=== PATIENT | male | born 1985 | race Two or more races ===

== ENCOUNTER 2019-03-04 22:02 | Emergency (ER) | payer OTHER ==
[~2019-03-04] VITALS: Ht 177.8 cm; Wt 68.0 kg
[2019-03-04] MEDS ORDERED: LORazepam 2MG/ML-1ML VIAL ONE (22:13)
[2019-03-04] MEDS ORDERED: LEVETIRACETAM INJ 1,000 MG in D5W 5% 100 ML IV ONE (22:45)
[2019-03-04] MEDS ORDERED: VALPROATE INJ 500 MG in SODIUM CHL 0.9% 100 ML IV ONE (22:45)
[2019-03-04 23:05] LABS: Basophils # (auto) 0 uL; Basophils % (auto) 0.2 % (0.0-2.0); Eosinophils # (auto) 0.1 uL; Eosinophils % (auto) 1.5 % (0.0-7.0); Hematocrit 45.4 % (41.0-53.0); Hemoglobin 15.4 g/dL (13.5-17.5); Lymphocytes # (auto) 2.5 uL; Lymphocytes % (auto) 39.9 % (10.0-50.0); Mean Corpuscular Hemoglobin 32.9 pg (28.0-32.0); Mean Corpuscular Hgb Conc. 33.9 g/dL (32.0-36.0); Mean Corpuscular Volume 97.2 fL (80.0-100.0); Monocytes # (auto) 0.5 uL; Monocytes % (auto) 8.1 % (0.0-12.0); Neutrophils # (auto) 3.1 uL; Neutrophils % (auto) 50.3 % (37.0-80.0); Nucleated Red Blood Cells % 0.1 %; Platelet Count (auto) 190 10^3/uL (140-450); Red Blood Cells 4.68 10^6/uL (4.5-5.90); Red Cell Distribution Width 13.5 % (11.8-14.3); White Blood Cell 6.2 10^3/uL (4.4-10.8)
[2019-03-04 23:14] LABS: Albumin 3.3 g/dL (3.4-5.0); BUN/Creatinine Ratio 11.4; Calcium 8.3 mg/dL (8.5-10.1); Potassium 4.1 mmol/L (3.5-5.1)
[2019-03-04 23:16] LABS: Bilirubin, Total 0.2 mg/dL (0.2-1.0); Total Protein 6.8 g/dL (6.4-8.2)
[2019-03-04] MEDS ORDERED: LEVETIRACETAM 500 MG/5ML INJ IV ONE (23:26)
[2019-03-04] MEDS ORDERED: VALPROIC ACID 250 MG CAP PO ONE (23:46)
[2019-03-04 23:56] VITALS: BP 105/69
[2019-03-05 00:56] LABS: Hepatitis B Surface Antibody Positive
[2019-03-05 02:39] LABS: Hepatitis B Surface Antigen Negative (Negative)
[2019-03-13] MEDS ORDERED: LORazepam 2MG/ML-1ML VIAL IM ONE (11:45)
== END 2019-03-05 00:23 ==
LOC: EDBD 22:02 → ER 22:06 → EEVIPCON 22:06 → ER 03-05 00:23
DX: R56.9 Unspecified convulsions (principal)
CPT/HCPCS: 36415; 80053; 85025; 86703; 86706; 86803; 87340; 96365; 99283; J1953; J2060; J7060

== ENCOUNTER 2019-12-14 18:56 | Emergency (ER) | payer OTHER ==
[~2019-12-14] VITALS: Ht 175.3 cm; Wt 81.6 kg
[2019-12-14] MEDS ORDERED: LORazepam 2MG/ML-1ML VIAL IV ONE (19:45)
[2019-12-14] MEDS ORDERED: levETIRAcetam 500 MG TAB PO ONE (20:30)
[2019-12-14 20:32] LABS: Amphetamine Screen, Urine NEGATIVE (NEGATIVE); Barbiturate Scree,Urine NEGATIVE (NEGATIVE); Benzodiazephine Screen, Urine NEGATIVE (NEGATIVE); Cannabinoid Screen, Urine NEGATIVE (NEGATIVE); Cocaine Screen, Urine NEGATIVE (NEGATIVE); Opiate Scree,Urine NEGATIVE (NEGATIVE); Phencyclidine Screen, Urine NEGATIVE (NEGATIVE)
[2019-12-14 21:00] VITALS: BP 106/72
[2019-12-14 21:13] LABS: Basophils # (auto) 0 10 ^3/uL (0-0.2); Basophils % (auto) 0.3 % (0.0-2.0); Eosinophils # (auto) 0.1 10 ^3/uL (0-0.8); Eosinophils % (auto) 1.2 % (0.0-7.0); Hematocrit 43.9 % (41.0-53.0); Hemoglobin 15.3 g/dL (13.5-17.5); Lymphocytes # (auto) 2.3 10 ^3/uL (0.4-5.4); Lymphocytes % (auto) 28.7 % (10.0-50.0); Mean Corpuscular Hemoglobin 33.1 pg (28.0-32.0); Mean Corpuscular Volume 94.6 fL (80.0-100.0); Monocytes # (auto) 0.5 10 ^3/uL (0-1.3); Monocytes % (auto) 6.5 % (0.0-12.0); Neutrophils # (auto) 5.1 10 ^3/uL (1.6-8.6); Neutrophils % (auto) 63.3 % (37.0-80.0); Nucleated Red Blood Cells % 0.1 %; Platelet Count (auto) 227 10^3/uL (140-450); Red Blood Cells 4.64 10^6/uL (4.5-5.90); Red Cell Distribution Width 13.6 % (11.8-14.3)
[2019-12-14 21:30] LABS: Albumin 3.6 g/dL (3.4-5.0); BUN/Creatinine Ratio 9.4; Calcium 8.4 mg/dL (8.5-10.1); Potassium 3.9 mmol/L (3.5-5.1)
[2019-12-14 21:33] LABS: Bilirubin, Total 0.5 mg/dL (0.2-1.0)
== END 2019-12-14 21:59 | disposition home or self-care (01) ==
LOC: EDUNIT# 18:56 → EDBD 18:56 → EEVIPCON 18:57 → ER 18:57
DX: G40.909 Epilepsy, unspecified, not intractable, without status epilepticus (principal); F41.1 Generalized anxiety disorder
CPT/HCPCS: 36415; 70450; 80053; 80307; 85025

== ENCOUNTER → 2019-12-15 | Emergency (ER) | payer OTHER ==
[~2019-12-15] VITALS: Ht 167.6 cm; Wt 61.2 kg
[~2019-12-15] MED LIST: diphenhdrAMINE HCL 50 MG/1 ML VL IV ONE
[2019-12-15 17:02] LABS: Urine Bacteria NONE SEEN /hpf (None Seen); Urine Blood Negative /uL (Negative); Urine Specific Gravity 1.005 (1.001-1.035); Urine WBC 1 /hpf (0 - 3)
[2019-12-15 17:10] LABS: Basophils # (auto) 0 10 ^3/uL (0-0.2); Basophils % (auto) 0.3 % (0.0-2.0); Eosinophils # (auto) 0.1 10 ^3/uL (0-0.8); Eosinophils % (auto) 1.6 % (0.0-7.0); Hemoglobin 15.1 g/dL (13.5-17.5); Lymphocytes # (auto) 2.1 10 ^3/uL (0.4-5.4); Lymphocytes % (auto) 26.2 % (10.0-50.0); Mean Corpuscular Hemoglobin 32.3 pg (28.0-32.0); Mean Corpuscular Hgb Conc. 33.7 g/dL (32.0-36.0); Mean Corpuscular Volume 95.8 fL (80.0-100.0); Monocytes # (auto) 0.5 10 ^3/uL (0-1.3); Monocytes % (auto) 6.2 % (0.0-12.0); Neutrophils # (auto) 5.2 10 ^3/uL (1.6-8.6); Neutrophils % (auto) 65.7 % (37.0-80.0); Platelet Count (auto) 227 10^3/uL (140-450); Red Blood Cells 4.69 10^6/uL (4.5-5.90)
[2019-12-15 17:22] LABS: INR 1.09 (0.9-1.15); Partial Thromboplastin Time 31.1 sec (23.64-32.05)
[2019-12-15 17:25] LABS: Albumin 3.5 g/dL (3.4-5.0); Anion Gap 8 (5-15); Blood Urea Nitrogen 8 mg/dL (7-18); Calcium 8.2 mg/dL (8.5-10.1); Carbon Dioxide 24 mmol/L (21-32); Chloride 113 mmol/L (98-107); Glucose 85 mg/dL (74-106); Magnesium 2.1 mg/dL (1.6-2.6); Potassium 3.7 mmol/L (3.5-5.1); Sodium 145 mmol/L (136-145)
[2019-12-15 17:31] LABS: Alanine Aminotransferase 18 U/L (16-61); Alkaline Phosphatase 82 U/L (45-117); Aspartate Aminotransferase 19 U/L (15-37); BUN/Creatinine Ratio 8.5; Bilirubin, Total 0.5 mg/dL (0.2-1.0); GFR African American 119 mL/min; GFR Non-African American 98 mL/min; Total Protein 7.2 g/dL (6.4-8.2)
[2019-12-15 17:56] LABS: Alcohol, Urine < 3.0 mg/dL (0-5); Amphetamine Screen, Urine NEGATIVE (NEGATIVE); Barbiturate Scree,Urine NEGATIVE (NEGATIVE); Benzodiazephine Screen, Urine POSITIVE (NEGATIVE); Cannabinoid Screen, Urine NEGATIVE (NEGATIVE); Cocaine Screen, Urine NEGATIVE (NEGATIVE); Opiate Scree,Urine NEGATIVE (NEGATIVE); Phencyclidine Screen, Urine NEGATIVE (NEGATIVE)
[2019-12-15 20:00] VITALS: BP 121/61
== END | disposition home or self-care (01) ==
LOC: EDUNIT# 15:55 → ER 16:01 → EDBD 16:01 → EEVIPCON 16:01
DX: G40.409 Other generalized epilepsy and epileptic syndromes, not intractable, without status epilepticus (principal); Z91.14 Patient's other noncompliance with medication regimen
CPT/HCPCS: 36415; 71045; 80053; 80307; 81001; 82542; 83735; 83880; 84443; 84484; 85025; 85379; 85610; 85730; 87081; 96365; 96375; 99284; J1200; J1953; J7060

== ENCOUNTER 2019-12-16 00:06 | Inpatient (IN) | payer OTHER ==
[~2019-12-16] VITALS: Ht 167.6 cm; Wt 76.7 kg
[2019-12-16] MEDS ORDERED: LORazepam 2MG/ML-1ML VIAL IV PRN ×2 (01:00→21:00)
--- NOTE | 2019-12-16 03:00 | NUR ---
Admitted this 34 y/o male client from long term, [facility], [facility] and mouth pain s/p Seizure. Pt. alert, awake, oriented x 4, in Room Air, breathing regular and unlabored, lungs are clear bilaterally, presence of pain @ the nasal areas, upper lip, mouth and tooth # 23 pain about 2 /10 scale, pain is tolerable. Pt. arrived to from ER. to [facility] Room # 207 by karen accompanied by 2 hospital personnel. Pt. placed to the bed comfortably. Given orientation to the room and unit including hospital policies "no smoking policy", safety rules, routines such as V/S taking and hospital policies. Pt. given orientation about the use of call-light, TV, telephone and bed controls. Assessment done from head to toe. Pt. skin is generally intact. Ambulatory to the BR and independent with ADL's and can turn self. Officers @ the bedside x 2 present and guarding the pt. Pt. PIV access @ the LAC G # 20 , patent and intact. No s/s of IV infiltration. Pt. is resting and kept. safe and engineering teacher bed. Pt. with hand cuff and ankle cuffs on. Medical-Surgical Pt.
[2019-12-16 03:16] VITALS: BP 122/78
--- NOTE | 2019-12-16 03:26 | NUR ---
MED REC UNABLE TO OBTAIN CORRECT DOSAGES OF MEDICATIONS. PATIENT STATES HE TAKES, GABAPENTIN, KEPPRA AND TRAZODONE. PATIENT UNABLE TO STATE DOSES OR FREQUENCY.
--- NOTE | 2019-12-16 03:30 | NUR ---
Resource RN and assigned RN gathered data from the pt. Pt. provided assistance @ the bedside. Pt. on Regular diet.
[2019-12-16 05:44] VITALS: BP 102/56
--- NOTE | 2019-12-16 06:00 | NUR ---
Pt. is resting and sleeping. Maintain a quiet and safe environment. Officers @ the bedside.
--- NOTE | 2019-12-16 07:30 | NUR ---
PER NOC SHIFT MONI CARROLL, MRSA SWAB SENT TO LABORATORY
--- NOTE | 2019-12-16 07:30 | NUR ---
Gave report to the next Day Shift assigned RN.
[2019-12-16 09:00] VITALS: BP 124/70
[2019-12-16] MEDS: GABAPENTIN 400 MG CAP PO SCH ×2 (10:14→21:37)
--- NOTE | 2019-12-16 10:30 | NUR ---
DR INMAN AT BED SIDE DISCUSSING POC WITH PATIENT. PATIENT VERBALIZES UNDERSTANDING.
--- NOTE | 2019-12-16 11:00 | NUR ---
PER MARY, PATIENT RIPPED OFF IV, SITE ASSESSED, CATHETER INTACT, NO TRAUMA TO SITE. IV EDUCATION GIVEN TO PATIENT. PATIENT STATES "I TOOK IT OFF BECAUSE I NEEDED TO PRAY". PATIENT AWARE OF NEED OF NEW IV, STATES HE WILL NOT PULL IT OFF AGAIN.
--- NOTE | 2019-12-16 11:10 | NUR ---
PATIENT IN SHOWER. GUARDS AT DOORWAY.
--- NOTE | 2019-12-16 12:00 | NUR ---
IV insertion IV access obtained, via clean sterile technique by inserting 22 gauge catheter at left forearm after 1 attempt. IV secured properly. No trauma to site. Patient tolerated well.
[2019-12-16 13:00] VITALS: BP 123/74
[2019-12-16 17:44] VITALS: BP 120/75
--- NOTE | 2019-12-16 19:30 | NUR ---
Opening Shift Note Assumed care of patient, awake and alert. Fall, safety, and seizure precautions in place. No S/S of distress/SOB or pain. Call light within reach and able to use. Guards at bedside. Instructed on POC and to call for assist PRN, patient verbalized understanding and in agreement. Will continue to monitor for changes Q1hr and PRN.
[2019-12-16] MEDS: levETIRAcetam 500 MG TAB PO SCH (21:37)
[2019-12-16] MEDS: traZODone HCL 50 MG TAB PO SCH (21:37)
[2019-12-16 22:00] VITALS: BP 101/47
--- NOTE | 2019-12-17 05:02 | NUR ---
Pain Patient reports pain 6/10 using adult pain scale to head. No medications prn for pain available. MD aware of pain and no prn pain medications available. Patient appears comfortable and in no acute distress. Will continue to monitor.
[2019-12-17 09:10] VITALS: BP 114/62
[2019-12-17] MEDS: GABAPENTIN 400 MG CAP PO SCH ×2 (09:28→21:41)
[2019-12-17] MEDS: levETIRAcetam 500 MG TAB PO SCH ×2 (09:28→21:41)
[2019-12-17] MEDS: ENOXAPARIN SOD 40 MG/0.4 ML SYRINGE SC SCH (09:29)
[2019-12-17 13:00] VITALS: BP 112/77
--- NOTE | 2019-12-17 13:16 | NUR ---
GUARDS WITNESSED PATIENT HAVING A SEIZURE, WHICH LASTED ABOUT A MINUTE PER GUARDS. PRN ATIVAN ADMINISTERED PER MD ORDERS. PATIENT ASSESSED. PATIENT LETHARGIC AND C/O HEADACHE. GUARDS STATE HE HIT HIS HEAD ON THE RAIL. NEW BRUISING NOTED AROUND EYES. WILL PAGE DR INMAN.
--- NOTE | 2019-12-17 13:27 | NUR ---
DR INMAN PAGED D/T PATIENT CONDITION S/P SEIZURE. BRUISING NOTED AROUND BOTH EYES. AWAITING CALL BACK.
--- NOTE | 2019-12-17 13:54 | NUR ---
PATIENT C/O CHEST PAIN AND SEVERE ABDOMINAL PAIN. WILL DO EKG. AWAITING CALL BACK FROM .
--- NOTE | 2019-12-17 14:05 | NUR ---
EKG READING SINUS RHYTHM
--- NOTE | 2019-12-17 14:49 | NUR ---
SECOND PAGE THROUGH EXCHANGE TO DR INMAN. PER EDUCATION COORDINATOR MESSAGE HAS BEEN SENT TO . AWAITING CALL BACK. PATIENT CONTINUES TO C/O HEADACHE. WILL CONTINUE TO MONITOR.
--- NOTE | 2019-12-17 14:56 | NUR ---
RECEIVED CALL FROM MD INMAN. UPDATED ON PATIENTS STATUS. NO NEW ORDERS RECEIVED. WILL CONTINUE TO MONITOR.
--- NOTE | 2019-12-17 15:00 | NUR ---
PATIENT VOMITING STATES 06/08 ABDOMINAL PRESSURE AND FRONTAL HEAD PRESSURE. WILL RELATE TO MD UPON ARRIVAL. Addendum: 12/17/19 at 1606 by EUGENIO SANFORD RN RN *ABDOMINAL PAIN NOT PRESSURE
--- NOTE | 2019-12-17 15:30 | NUR ---
MD INMAN IN UNIT. NEW ORDERS RECEIVED. REFER TO ORDER HX.
[2019-12-17] MEDS ORDERED: ONDANSETRON HCL 4 MG/2 ML VIAL IV PRN (15:45)
[2019-12-17 17:00] VITALS: BP 111/82
--- NOTE | 2019-12-17 17:07 | NUR ---
ROUNDS PATIENT LAYING IN BED COMFORTABLY, PATIENT STATES," I FEEL MUCH BETTER." WILL CONTINUE TO MONITOR.
--- NOTE | 2019-12-17 19:30 | NUR ---
Opening Shift Note Assumed care of patient, awake and alert. No S/S of distress/SOB or pain. Fall, safety, and seizure precautions in place. Call light within reach and able to use. Guards at bedside. Instructed on POC and to call for assist PRN, patient verbalized understanding and in agreement. Will continue to monitor for changes Q1hr and PRN.
[2019-12-17] MEDS: traZODone HCL 50 MG TAB PO SCH (21:18)
--- NOTE | 2019-12-17 21:25 | NUR ---
CALLED AFTER HOURS PHARMACY CALLED AFTER-HOURS PHARMACY TO CORRECT MEDICATION (SEE EMAR). PHARMACIST VERBALIZED UNDERSTANDING AND IN AGREEMENT. WILL CONTINUE TO MONITOR.
[2019-12-17] MEDS: GABAPENTIN 100 MG CAP PO SCH (21:41)
[2019-12-17 22:19] VITALS: BP 119/72
[2019-12-18 05:00] VITALS: BP 104/61
[2019-12-18 05:42] LABS: Calcium 8.7 mg/dL (8.5-10.1); Potassium 3.6 mmol/L (3.5-5.1)
[2019-12-18 05:45] LABS: BUN/Creatinine Ratio 10.2
--- NOTE | 2019-12-18 08:00 | NUR ---
Opening Shift Note Assumed care of patient, awake and alert laying in bed. No S/S of distress/SOB or pain. Instructed on POC and to call for assist PRN, will continue to monitor for changes Q1hr and PRN. Guards at bedside.
[2019-12-18 08:29] VITALS: BP 96/56
[2019-12-18] MEDS: GABAPENTIN 100 MG CAP PO SCH ×2 (09:14→21:16)
[2019-12-18] MEDS: levETIRAcetam 500 MG TAB PO SCH ×2 (09:14→21:16)
[2019-12-18] MEDS: PANTOPRAZOLE 40 MG TAB PO SCH (09:14)
[2019-12-18] MEDS: ENOXAPARIN SOD 40 MG/0.4 ML SYRINGE SC SCH (09:15)
[2019-12-18] MEDS: GABAPENTIN 400 MG CAP PO SCH ×2 (09:15→21:16)
[2019-12-18 12:30] VITALS: BP 123/69
[2019-12-18 16:59] VITALS: BP 107/69
--- NOTE | 2019-12-18 19:25 | NUR ---
Opening Shift Note Upon entering room, patient is in no S/S of distress/SOB or pain. AOx4. Guards at bedside. Fall, safety, and seizure precautions in place. Call light within reach and able to use. Instructed patient on his POC and to call for assist PRN, patient verbalized understanding and in agreement. Will continue to monitor for changes Q1hr and PRN.
[2019-12-18] MEDS: traZODone HCL 50 MG TAB PO SCH (21:17)
[2019-12-18 21:52] VITALS: BP 113/69
[2019-12-19 05:00] VITALS: BP 125/60
--- NOTE | 2019-12-19 08:10 | NUR ---
Opening Shift Note Assumed care of patient, awake and alert sitting up in bed. No S/S of distress/SOB or pain. Patient stated that he is having a mild headache 2/10 and blurred vision on and off since he woke up this AM. Will notify neurologist. Instructed on POC and to call for assist PRN, will continue to monitor for changes Q1hr and PRN.
[2019-12-19 09:21] VITALS: BP 102/59
[2019-12-19] MEDS: ENOXAPARIN SOD 40 MG/0.4 ML SYRINGE SC SCH (09:24)
[2019-12-19] MEDS: PANTOPRAZOLE 40 MG TAB PO SCH (09:24)
[2019-12-19] MEDS: GABAPENTIN 400 MG CAP PO SCH ×2 (09:25→22:48)
[2019-12-19] MEDS: levETIRAcetam 500 MG TAB PO SCH ×2 (09:25→22:48)
[2019-12-19] MEDS: GABAPENTIN 100 MG CAP PO SCH ×2 (09:25→22:48)
[2019-12-19 14:20] VITALS: BP 117/58
[2019-12-19 16:30] VITALS: BP 132/72
--- NOTE | 2019-12-19 19:15 | NUR ---
Opening Shift Note Assumed care of patient, awake and alert. No S/S of distress/SOB or pain. Guards are present in the patient's room. Seizure precautions are in place. Bed is locked in lowest position with call light within reach. Instructed on POC and to call for assist PRN, will continue to monitor for changes Q1hr and PRN.
[2019-12-19 21:00] VITALS: BP 118/79
[2019-12-19] MEDS: traZODone HCL 50 MG TAB PO SCH (22:00)
[2019-12-20 04:30] VITALS: BP 107/53
--- NOTE | 2019-12-20 08:00 | NUR ---
ASSESSMENT NOTE PT IS ALERT ORIENTED X4, RESTING IN BED COMFORTABLY, NO DISTRESS NOTED, NO ACTIVE SEIZURE NOTED, PT HAS A METAL HAND CUFF AT RT WRIEST, ABLE TO VERBALIS HIS NEEDS, SELF REPOSITION, CALL LIGHT WITHIN REACH
[2019-12-20 09:00] VITALS: BP 125/69
[2019-12-20] MEDS: ENOXAPARIN SOD 40 MG/0.4 ML SYRINGE SC SCH (09:02)
[2019-12-20] MEDS: GABAPENTIN 400 MG CAP PO SCH (09:03)
[2019-12-20] MEDS: GABAPENTIN 100 MG CAP PO SCH (09:03)
[2019-12-20] MEDS: levETIRAcetam 500 MG TAB PO SCH (09:03)
[2019-12-20] MEDS: PANTOPRAZOLE 40 MG TAB PO SCH (09:04)
--- NOTE | 2019-12-20 11:30 | NUR ---
DR GALEANA IS HERE FOLLOWING UP ON PT WITH DISCHARGE ORDERS
[2019-12-20] MEDS ORDERED: LEVE100012 PO (11:44)
--- NOTE | 2019-12-20 13:00 | NUR ---
ALL DISCHARGE INSTRUCTION GIVEN TO PT, VERBALIS UNDERSTANDING, STRESS ON TAKING KEPPRA PRESCRIBED, NEXT DOSE IS TONIGHT AND FOLLOW UP WITH SHELTER MD,CHART COPY AND EXIT CARE ARE GIVEN TO PT/ GUARDS
--- NOTE | 2019-12-20 13:10 | NUR ---
IV removal IV DC'd with sterile technique, catheter fully intact. Pressure dressing applied to site. Patient tolerated procedure well. Discharged with aftercare instructions per MD. NOTE:
--- NOTE | 2019-12-20 13:43 | NUR ---
PT AMBULATED OUT WITH HIS GUARDS, HAS HAND CUFF ON, NO DISTRESS NOTED, ALERT ORIENTED X4, TO THE [facility] VEHICLE
== END 2019-12-20 13:43 | DRG 101 ==
LOC: EDBD 00:06 → EEVIPCON 00:06 → ER 00:06 → EDUNIT# 00:06 → OVERFLOW 00:07 → CENTRAL 02:54
PROVIDERS: ADMIT Internal Medicine; ATTEND Internal Medicine
DX: G40.909 Epilepsy, unspecified, not intractable, without status epilepticus (principal); T50.996A Underdosing of other drugs, medicaments and biological substances, initial encounter; F31.9 Bipolar disorder, unspecified; F41.9 Anxiety disorder, unspecified; Z91.138 Patient's unintentional underdosing of medication regimen for other reason; Y92.89 Other specified places as the place of occurrence of the external cause
CPT/HCPCS: 36415; 70450; 70486; 70540; 70551; 80048; 82542; 87081; G0378; J2405

== ENCOUNTER 2020-01-31 13:16 | Inpatient (IN) | payer OTHER ==
[~2020-01-31] VITALS: Ht 149.9 cm; Wt 82.0 kg
[~2020-01-31 13:16] MED LIST changes: +LEVE100012 PO; -diphenhdrAMINE HCL 50 MG/1 ML VL IV ONE
[2020-01-31] MEDS ORDERED: SODIUM CHLORIDE 0.9% 1,000 ML IVB ONE (14:07)
[2020-01-31 14:46] LABS: Basophils # (auto) 0 10 ^3/uL (0-0.2); Basophils % (auto) 0.3 % (0.0-2.0); Eosinophils # (auto) 0.1 10 ^3/uL (0-0.8); Eosinophils % (auto) 1.4 % (0.0-7.0); Hematocrit 43.2 % (41.0-53.0); Hemoglobin 14.5 g/dL (13.5-17.5); Lymphocytes # (auto) 1.9 10 ^3/uL (0.4-5.4); Lymphocytes % (auto) 25.6 % (10.0-50.0); Mean Corpuscular Hemoglobin 31.9 pg (28.0-32.0); Mean Corpuscular Hgb Conc. 33.6 g/dL (32.0-36.0); Mean Corpuscular Volume 94.8 fL (80.0-100.0); Monocytes # (auto) 0.5 10 ^3/uL (0-1.3); Monocytes % (auto) 6.1 % (0.0-12.0); Neutrophils % (auto) 66.6 % (37.0-80.0); Nucleated Red Blood Cells % 0.1 %; Platelet Count (auto) 249 10^3/uL (140-450); Red Blood Cells 4.55 10^6/uL (4.5-5.90); Red Cell Distribution Width 13.5 % (11.8-14.3); White Blood Cell 7.5 10^3/uL (4.4-10.8)
--- NOTE | 2020-01-31 14:48 | NUR ---
MS admit from [facility] admitted to tele/MS after SBAR received. Patient oriented to Autumn Crandall, primary RN, unit, room, bed, and unit policies regarding patient care and visiting hours. Bed set to lowest position/locked, bedside rails up x2, call light within reach. Instructed patient to call for assistance. Patient verbalized understanding. Will continue to monitor Q1hr and PRN. Addendum: 01/31/20 at 1837 by Autumn Crandall RN CORRECT TIME [id number]
[2020-01-31 15:05] LABS: Potassium 3.6 mmol/L (3.5-5.1)
[2020-01-31 15:11] LABS: Albumin 3.3 g/dL (3.4-5.0); BUN/Creatinine Ratio 9.6; Bilirubin, Total 0.4 mg/dL (0.2-1.0); Calcium 7.9 mg/dL (8.5-10.1); Magnesium 2.4 mg/dL (1.6-2.6); Total Protein 6.7 g/dL (6.4-8.2)
[2020-01-31] MEDS ORDERED: LEVE750T15 PO (17:35)
[2020-01-31] MEDS ORDERED: GABA-339 PO ×2 (17:35→21:24)
[2020-01-31] MEDS ORDERED: OLAN5TAB26 PO (17:35)
[2020-01-31] MEDS ORDERED: TRAZ1TAB12 PO (17:35)
--- NOTE | 2020-01-31 19:35 | NUR ---
Opening Shift Note Assumed care of patient, awake and alert oriented x4. No S/S of distress/SOB noted. Bed is low, locked with 2x side rails up. Call light is within reach. Guards at the bedside and bed rails are padded bilaterally. Instructed on POC and to call for assist PRN.
--- NOTE | 2020-01-31 21:22 | NUR ---
Paged Dr. Carreon: Paged Dr. Carreon at this time regarding patients medication. Patient requesting to take their scheduled gabapentin on their medication reconciliation. Waiting for call back from .
--- NOTE | 2020-01-31 21:25 | NUR ---
Dr Carreon called back: Dr. Carreon called back. Updated MD regarding patient wanting to take his 1200mg gabapentin BID that he takes according to his medication reconciliation. Dr. Carreon approved of medication to be placed. To place orders..
[2020-01-31] MEDS: GABAPENTIN 400 MG CAP PO SCH (21:56)
[2020-01-31] MEDS: levETIRAcetam 500 MG TAB PO SCH (21:57)
[2020-01-31 22:00] VITALS: BP 113/67
[2020-02-01 05:00] VITALS: BP 121/70
[2020-02-01 08:23] LABS: Alcohol, Urine < 3.0 mg/dL (0-10); Amphetamine Screen, Urine NEGATIVE (NEGATIVE); Barbiturate Scree,Urine NEGATIVE (NEGATIVE); Benzodiazephine Screen, Urine POSITIVE (NEGATIVE); Cannabinoid Screen, Urine NEGATIVE (NEGATIVE); Cocaine Screen, Urine NEGATIVE (NEGATIVE); Opiate Scree,Urine NEGATIVE (NEGATIVE); Phencyclidine Screen, Urine NEGATIVE (NEGATIVE)
[2020-02-01] MEDS: LORazepam 2MG/ML-1ML VIAL IV PRN ×2 (08:45→20:52)
--- NOTE | 2020-02-01 08:45 | NUR ---
Patient having seizure in the bathroom fell on the floor, Ativan 2 mg IV given VS T 98.0 HR 80 BP 117/75 Sat oxygen 98 % room air. Patient does not remember how he had seizure. Patient awake, alert , oriented x 4 and verbally responsive. Speech is clear and coherent. Hand grasps strong bilaterally. He did not know if he hit his head. He stated his pain is on his back , pain level 10/10. No skin tear, abrasion , no any bleeding noted. Patient walked back to the bed without difficulty and assisted by a guard. Dr. Saldivar at bedside, made aware. CN notified. Will continue to monitor.
[2020-02-01 09:00] VITALS: BP 107/63
[2020-02-01] MEDS: levETIRAcetam 500 MG TAB PO SCH ×2 (10:14→21:44)
[2020-02-01] MEDS: GABAPENTIN 400 MG CAP PO SCH ×2 (10:14→21:43)
[2020-02-01] MEDS: HYDROcodone-ACET 10/325MG TAB PO PRN ×2 (10:15→14:15)
[2020-02-01 13:00] VITALS: BP 128/84
--- NOTE | 2020-02-01 14:16 | NUR ---
Spoke to Dr. Fernandez regarding patient refused MRI, increase pain meds and need Tele MD lazara aware , no new orders at this time.
[2020-02-01 17:00] VITALS: BP 124/70
--- NOTE | 2020-02-01 19:30 | NUR ---
RECEIVED PATENT FORM DAY SHIFT RN. PATIENT RESTING IN BED. NO S/S OF DISTRESS NOTED. C/O BACK PAIN @ 12/07. HOT PACKS APPLIED. POC INSTRUCTED AND ENCOURAGED PATIENT TO CALL FOR SOUND RECORDING TECHNICIAN IF NEEDED. BED IN LOWEST POSITION WITH PADDED RAILS UP X 2. CALL PARTIDA WITHIN REACH. ALARM ON. GUARDS AT BEDSIDE. CONTINUE TO MONITOR FOR CHANGES Q1H AND PRN.
--- NOTE | 2020-02-01 21:00 | NUR ---
PATIENT JUST HAD SEIZURE FOR 20 SECONDS PER GUARDS. WHEN WENT TO PATIENT'S ROOM, PATIENT ALREADY STOPPED SEIZURES. REORIENTED PATIENT TO TIME AND PLACE, PATIENT INCONTINENT OF URINE. AND VOMITED STOMACH CONTENT. VITALS, TEMP 98..3, BP 138/78, HR 74, RR 18, O2 SAT 94% ON RA. MEDICATED PATIENT FOR SEIZURES. TOTAL BED LINEN CHANGED. PATIENT'S TAKING SHOWER NOW UNDER GUARDS' SUPERVISION. PATIENT TOLERATED WELL. CONTINUE TO MONITOR.
[2020-02-01 22:00] VITALS: BP 138/78
--- NOTE | 2020-02-02 00:09 | NUR ---
PATIENT SLEEPING. NO S/S OF DISTRESS AND PAIN NOTED. CONTINUE TO MONITOR.
--- NOTE | 2020-02-02 03:40 | NUR ---
PATIENT SLEEPING. NO S/S OF DISTRESS AND PAIN NOTED. CONTINUE TO MONITOR.
[2020-02-02 05:12] VITALS: BP 104/57
[2020-02-02 09:00] VITALS: BP 116/72
[2020-02-02] MEDS: HYDROcodone-ACET 10/325MG TAB PO PRN ×2 (09:16→14:07)
[2020-02-02] MEDS: levETIRAcetam 500 MG TAB PO SCH ×2 (09:16→22:25)
[2020-02-02] MEDS: GABAPENTIN 400 MG CAP PO SCH (09:16)
[2020-02-02 13:00] VITALS: BP 111/71
[2020-02-02 17:00] VITALS: BP 126/79
[2020-02-02] MEDS: buPROPion HCL 75 MG TAB PO SCH (18:49)
--- NOTE | 2020-02-02 19:55 | NUR ---
RECEIVED PATENT FORM DAY SHIFT RN. PATIENT RESTING IN BED. NO S/S OF DISTRESS NOTED. DENIED PAIN FOR NOW. BED IN LOWEST POSITION WITH PADDED RAILS UP X 2. CALL PARTIDA WITHIN REACH. ALARM ON. GUARDS AT BEDSIDE. CONTINUE TO MONITOR FOR CHANGES Q1H AND PRN.
--- NOTE | 2020-02-02 20:30 | NUR ---
IV insertion IV access obtained, via clean sterile technique by inserting [22] gauge catheter at [RW] after [1] attempt(s). IV secured properly. No trauma to site. Patient tolerated well. IV SITE RED AND PAIN WHEN FLUSHING WITH NS. IV removal IV DC'd with clean sterile technique, catheter fully intact. Pressure dressing applied to site. Patient tolerated well. NOTE:
[2020-02-02 22:00] VITALS: BP 108/66
[2020-02-02] MEDS: OLANZapine 5 MG TAB PO SCH (22:24)
[2020-02-02] MEDS: GABAPENTIN 300 MG CAP PO SCH (22:24)
--- NOTE | 2020-02-03 01:28 | NUR ---
PATIENT SLEEPING. NO S/S OF DISTRESS NOTED. CONTINUE TO MONITOR.
[2020-02-03 05:00] VITALS: BP 91/56
[2020-02-03] MEDS: buPROPion HCL 75 MG TAB PO SCH ×2 (06:12→18:27)
--- NOTE | 2020-02-03 06:12 | NUR ---
REASSESSED BP 102/56, HR 45. SCHEDULED MEDICATION GIVEN ORDERED. CONTINUE TO MONITOR.
[2020-02-03 06:13] VITALS: BP 102/56
[2020-02-03 09:00] VITALS: BP 101/60
[2020-02-03] MEDS: GABAPENTIN 300 MG CAP PO SCH ×2 (10:13→22:31)
[2020-02-03] MEDS: levETIRAcetam 500 MG TAB PO SCH ×2 (10:13→22:31)
[2020-02-03 13:00] VITALS: BP 99/62
[2020-02-03 16:56] VITALS: BP 114/72
--- NOTE | 2020-02-03 19:10 | NUR ---
Opening Shift Note Assumed care of patient, awake and alert. No S/S of distress/SOB or pain. Safety measures in place bed in lowest position, side rails up x2, and call light within reach. Instructed on POC and to call for assist PRN, will continue to monitor for changes Q1hr and PRN.
[2020-02-03 21:28] VITALS: BP 98/73
[2020-02-03] MEDS: OLANZapine 5 MG TAB PO SCH (22:31)
[2020-02-04 05:24] VITALS: BP 92/53
[2020-02-04] MEDS: buPROPion HCL 75 MG TAB PO SCH ×2 (06:36→18:13)
[2020-02-04 09:00] VITALS: BP 102/45
--- NOTE | 2020-02-04 09:26 | NUR ---
Dr. Carreon at bedside to discuss plan of care with patient.
[2020-02-04] MEDS: levETIRAcetam 500 MG TAB PO SCH ×2 (11:00→21:36)
[2020-02-04] MEDS: GABAPENTIN 300 MG CAP PO SCH ×2 (11:00→21:37)
[2020-02-04 13:00] VITALS: BP 102/54
--- NOTE | 2020-02-04 13:45 | NUR ---
Est energy needs 6355-1107 kcal (20-23 kcal/kg BW 81.8kg) Est protein needs 66-82g (0.8-1g/kg BW 81.8kg) Will reassess prn. Addendum: 02/04/20 at [address] Amended: Links added.
[2020-02-04 17:00] VITALS: BP 137/81
--- NOTE | 2020-02-04 19:00 | NUR ---
Opening Shift Note Assumed care of patient, awake and alert. No S/S of distress/SOB or pain. Safety measures in place bed in lowest position, side rails up x2, and call light within reach. Instructed on POC and to call for assist PRN, will continue to monitor for changes Q1hr and PRN. Patient is an inmate; two guards at bedside.
--- NOTE | 2020-02-04 20:04 | NUR ---
PATIENT WALKING AROUND NURSES STATION WITH TWO GUARDS. STEADY GAIT NOTED. PATIENT DENIES PAIN.
[2020-02-04] MEDS: OLANZapine 5 MG TAB PO SCH (21:39)
[2020-02-04 22:00] VITALS: BP 103/63
[2020-02-05 05:50] VITALS: BP 92/49
[2020-02-05] MEDS: buPROPion HCL 75 MG TAB PO SCH (06:18)
--- NOTE | 2020-02-05 07:30 | NUR ---
Opening Shift Note Assumed care of patient, awake and alert. Respirations are even and unlabored. No S/S of distress/SOB or pain. Guards at bedside. Bed is low, locked with side rails up. Call light is within reach. Instructed on POC and to call for assist PRN, will continue to monitor for changes Q1hr and PRN.
[2020-02-05 09:00] VITALS: BP 94/75
[2020-02-05] MEDS: GABAPENTIN 300 MG CAP PO SCH (11:06)
[2020-02-05] MEDS: levETIRAcetam 500 MG TAB PO SCH (11:06)
[2020-02-05] MEDS ORDERED: KEP500T PO (12:30)
[2020-02-05] MEDS ORDERED: GABA300C10 PO (12:30)
[2020-02-05] MEDS ORDERED: BUP75T PO (12:30)
[2020-02-05] MEDS ORDERED: OLAN1TAB7 PO (12:30)
[2020-02-05 13:00] VITALS: BP_SYST 104; BP_SYST 118; BP_DIAS 61; BP_DIAS 71
[2020-02-05 14:20] VITALS: BP 104/61
--- NOTE | 2020-02-05 15:10 | NUR ---
DISCHARGE Discharge paperwork given to guards at bedside. IV removed with 22g catheter fully intact. No distress noted.
== END 2020-02-05 16:02 | DRG 101 ==
LOC: EEVIPCON 13:16 → EDBD 13:16 → ER 13:16 → OVERFLOW 13:17 → CENTRAL 16:48
PROVIDERS: ADMIT Internal Medicine; ATTEND Internal Medicine
DX: G40.89 Other seizures (principal); F17.200 Nicotine dependence, unspecified, uncomplicated; F20.9 Schizophrenia, unspecified; F32.9 Major depressive disorder, single episode, unspecified; F41.9 Anxiety disorder, unspecified; G62.9 Polyneuropathy, unspecified; Z79.899 Other long term (current) drug therapy
CPT/HCPCS: 36415; 70450; 71045; 80053; 80307; 82542; 83735; 85025; 96360; G0378

== ENCOUNTER 2020-03-17 17:16 | Emergency (ER) | payer OTHER ==
[~2020-03-17] VITALS: Ht 170.2 cm; Wt 65.8 kg
[~2020-03-17 17:16] MED LIST changes: +BUP75T PO; +GABA-339 PO; +GABA300C10 PO; +KEP500T PO; -LEVE100012 PO; +LEVE750T15 PO; +OLAN1TAB7 PO; +TRAZ1TAB12 PO
[2020-03-17 18:15] LABS: Basophils # (auto) 0 10 ^3/uL (0-0.2); Basophils % (auto) 0.5 % (0.0-2.0); Eosinophils # (auto) 0.2 10 ^3/uL (0-0.8); Eosinophils % (auto) 3.2 % (0.0-7.0); Hematocrit 47.3 % (41.0-53.0); Hemoglobin 15.8 g/dL (13.5-17.5); Lymphocytes # (auto) 2.7 10 ^3/uL (0.4-5.4); Lymphocytes % (auto) 36.7 % (10.0-50.0); Mean Corpuscular Hemoglobin 31.7 pg (28.0-32.0); Mean Corpuscular Hgb Conc. 33.5 g/dL (32.0-36.0); Mean Corpuscular Volume 94.8 fL (80.0-100.0); Monocytes # (auto) 0.4 10 ^3/uL (0-1.3); Neutrophils % (auto) 53.6 % (37.0-80.0); Nucleated Red Blood Cells % 0.1 %; Platelet Count (auto) 235 10^3/uL (140-450); Red Blood Cells 4.99 10^6/uL (4.5-5.90); Red Cell Distribution Width 13.5 % (11.8-14.3); White Blood Cell 7.5 10^3/uL (4.4-10.8)
[2020-03-17 18:33] LABS: Albumin 3.6 g/dL (3.4-5.0); BUN/Creatinine Ratio 10.7; Calcium 8.4 mg/dL (8.5-10.1); Potassium 4.3 mmol/L (3.5-5.1)
[2020-03-17 18:36] LABS: Bilirubin, Total 0.4 mg/dL (0.2-1.0); Total Protein 7.5 g/dL (6.4-8.2)
[2020-03-17] MEDS ORDERED: GABAPENTIN 300 MG CAP PO ONE (18:45)
[2020-03-17 19:23] LABS: Basophils # (auto) 0.1 10 ^3/uL (0-0.2); Basophils % (auto) 0.9 % (0.0-2.0); Eosinophils # (auto) 0.3 10 ^3/uL (0-0.8); Eosinophils % (auto) 3.3 % (0.0-7.0); Hematocrit 49.1 % (41.0-53.0); Hemoglobin 16.5 g/dL (13.5-17.5); Lymphocytes # (auto) 3.3 10 ^3/uL (0.4-5.4); Lymphocytes % (auto) 36.5 % (10.0-50.0); Mean Corpuscular Hemoglobin 31.8 pg (28.0-32.0); Mean Corpuscular Hgb Conc. 33.6 g/dL (32.0-36.0); Mean Corpuscular Volume 94.7 fL (80.0-100.0); Monocytes # (auto) 0.5 10 ^3/uL (0-1.3); Monocytes % (auto) 5.7 % (0.0-12.0); Neutrophils # (auto) 4.8 10 ^3/uL (1.6-8.6); Neutrophils % (auto) 53.6 % (37.0-80.0); Nucleated Red Blood Cells % 0.2 %; Platelet Count (auto) 163 10^3/uL (140-450); Red Blood Cells 5.18 10^6/uL (4.5-5.90); Red Cell Distribution Width 13.4 % (11.8-14.3)
[2020-03-17 19:56] LABS: Albumin 3.8 g/dL (3.4-5.0); Anion Gap 5 (5-15); Blood Alcohol < 3.0 mg/dL (0-5); Blood Urea Nitrogen 9 mg/dL (7-18); Calcium 8.8 mg/dL (8.5-10.1); Carbon Dioxide 28 mmol/L (21-32); Chloride 108 mmol/L (98-107); Glucose 88 mg/dL (74-106); Potassium 4.3 mmol/L (3.5-5.1); Sodium 141 mmol/L (136-145)
[2020-03-17 19:59] LABS: Alanine Aminotransferase 25 U/L (16-61); Alkaline Phosphatase 91 U/L (45-117); Aspartate Aminotransferase 16 U/L (15-37); Bilirubin, Total 0.3 mg/dL (0.2-1.0); GFR African American 124 mL/min; GFR Non-African American 103 mL/min; Total Protein 7.7 g/dL (6.4-8.2)
[2020-03-17 21:37] VITALS: BP 116/71
== END 2020-03-17 22:50 ==
LOC: EDBD 17:16 → EEVIPCON 17:16 → ER 17:16
DX: G40.409 Other generalized epilepsy and epileptic syndromes, not intractable, without status epilepticus (principal); Z91.14 Patient's other noncompliance with medication regimen
CPT/HCPCS: 36415; 80053; 80320; 82542; 85025; 96365; 99284; J1953; J7060

== ENCOUNTER 2020-03-26 14:11 | Emergency (ER) | payer OTHER ==
[~2020-03-26] VITALS: Ht 177.8 cm; Wt 63.5 kg
[2020-03-26 14:59] VITALS: BP 132/77
== END 2020-03-26 14:50 | disposition home or self-care (01) ==
LOC: EEVIPCON 14:11 → ER 14:11 → EDBD 14:11 → ER 14:50
DX: G40.909 Epilepsy, unspecified, not intractable, without status epilepticus (principal); F32.9 Major depressive disorder, single episode, unspecified
CPT/HCPCS: 96365; 96366; 99284; J1953; J7060

== ENCOUNTER 2020-04-29 17:05 | Inpatient (IN) | payer OTHER ==
[~2020-04-29] VITALS: Ht 167.6 cm; Wt 79.3 kg
[2020-04-29] MEDS ORDERED: SODIUM CHLORIDE 0.9% 1,000 ML IV ONE ×2 (17:13)
[2020-04-29 18:13] LABS: Basophils # (auto) 0 10 ^3/uL (0-0.2); Basophils % (auto) 0.3 % (0.0-2.0); Eosinophils # (auto) 0.1 10 ^3/uL (0-0.8); Eosinophils % (auto) 1.4 % (0.0-7.0); Hematocrit 44.7 % (41.0-53.0); Lymphocytes # (auto) 1.9 10 ^3/uL (0.4-5.4); Lymphocytes % (auto) 28.7 % (10.0-50.0); Mean Corpuscular Hemoglobin 31.5 pg (28.0-32.0); Mean Corpuscular Hgb Conc. 33.5 g/dL (32.0-36.0); Mean Corpuscular Volume 93.8 fL (80.0-100.0); Monocytes # (auto) 0.5 10 ^3/uL (0-1.3); Monocytes % (auto) 7.1 % (0.0-12.0); Neutrophils # (auto) 4.2 10 ^3/uL (1.6-8.6); Neutrophils % (auto) 62.5 % (37.0-80.0); Platelet Count (auto) 220 10^3/uL (140-450); Red Blood Cells 4.76 10^6/uL (4.5-5.90); Red Cell Distribution Width 13.8 % (11.8-14.3); White Blood Cell 6.7 10^3/uL (4.4-10.8)
[2020-04-29] MEDS ORDERED: LORazepam 2MG/ML-1ML VIAL IV ONE (18:15)
[2020-04-29 18:37] LABS: Alanine Aminotransferase 23 U/L (16-61); Albumin 3.6 g/dL (3.4-5.0); Anion Gap 2 (5-15); Blood Urea Nitrogen 10 mg/dL (7-18); Calcium 8.2 mg/dL (8.5-10.1); Carbon Dioxide 27 mmol/L (21-32); Chloride 112 mmol/L (98-107); Glucose 93 mg/dL (74-106); Potassium 3.7 mmol/L (3.5-5.1); Sodium 141 mmol/L (136-145)
[2020-04-29 18:44] LABS: Alkaline Phosphatase 82 U/L (45-117); Aspartate Aminotransferase 17 U/L (15-37); BUN/Creatinine Ratio 10.4; Bilirubin, Total 0.4 mg/dL (0.2-1.0); GFR African American 115 mL/min; GFR Non-African American 95 mL/min
[2020-04-29] MEDS ORDERED: NITROGLYCERIN 0.4 MG SL TAB SL PRN (18:45)
[2020-04-29] MEDS ORDERED: MORPHINE SULF INJ 2 MG/ML SYRINGE 1ML IV PRN (18:45)
[2020-04-29] MEDS: SOD CHL 0.45% 1,000 ML IV SCH (19:04)
[2020-04-29 22:00] VITALS: BP 111/81
[2020-04-29] MEDS: levETIRAcetam 500 MG TAB PO SCH (22:24)
[2020-04-30] MEDS: SOD CHL 0.45% 1,000 ML IV SCH ×4 (04:19→21:25)
[2020-04-30 05:00] VITALS: BP_SYST 115; BP_SYST 97; BP_DIAS 61; BP_DIAS 65
--- NOTE | 2020-04-30 07:30 | NUR ---
opening Shift Note Assumed care of patient, awake and alert. No S/S of distress/SOB or pain. Instructed on POC and to call for assist PRN, will continue to monitor for changes Q1hr and PRN. Bed is locked and in lowest position. Call light within reach.
--- NOTE | 2020-04-30 10:00 | NUR ---
IV insertion IV access obtained, via clean sterile technique by inserting [20] gauge catheter at [LEFT FOREARM] after [1] attempt(s). IV secured properly. No trauma to site. Patient tolerated well. IV removal IV DC'd ON RIGHT AC with clean sterile technique, catheter fully intact. Pressure dressing applied to site. Patient tolerated well.
[2020-04-30] MEDS: LORazepam 2MG/ML-1ML VIAL IV PRN ×2 (11:15→15:02)
--- NOTE | 2020-04-30 11:15 | NUR ---
PATIENT HAD SEIZURE ACTIVITY WITNESS VIA GUARDS IN ROOM. GUARDS STATED PATIENT LOSS CONSCIOUSNESS. SEIZURE LAST A FEW SECONDS WITH NO SIGNS OF RESPIRATORY ARREST. PATIENT GIVEN ATIVAN PRN FOR SEIZURES ORDERED BY DR. ECHEVERRIA. PATIENT WILL BE CONTINUED TO BE MONITORED AND DR. REYES. PATIENT SEIZURE PRECAUTIONS ARE PLACED.
[2020-04-30] MEDS: levETIRAcetam 500 MG TAB PO SCH ×2 (12:45→21:04)
[2020-04-30] MEDS: ENOXAPARIN SOD 40 MG/0.4 ML SYRINGE SC SCH (12:47)
--- NOTE | 2020-04-30 15:06 | NUR ---
PATIENT HAD ANOTHER WITNESS SEIZURE WHERE HE LOSS CONSCIOUSNESS. PATIENT HAD VISIBLE BODY MOVEMENT AND WAS NOT RESPONSIVE TO NAME. PATIENT DID NOT LOOSE BOWELS OR URINE. PATIENT GIVEN ATIVAN PRN FOR SEIZURE ACTIVITY. DR. INMAN PAGED DURING SEIZURE NEW ORDERS INCLUDE INCREASING KEPPRA 750 TID INSTEAD OF BID. NEW ORDERS WILL BE CARRIED OUT. PATIENT WILL BE CONTINUED TO BE MONITORED.
[2020-04-30] MEDS ORDERED: levETIRAcetam 500 MG TAB PO SCH ×2 (15:15→17:30)
[2020-04-30] MEDS ORDERED: buPROPion HCL 75 MG TAB PO SCH (19:00)
--- NOTE | 2020-04-30 19:45 | NUR ---
ASSUMED CARE, PT. AWAKE, NO SEIZURE NOTED. GUARDS AT BEDSIDE, NO SOB.
[2020-04-30] MEDS: GABAPENTIN 300 MG CAP PO SCH (21:04)
[2020-04-30 22:00] VITALS: BP 116/77
--- NOTE | 2020-04-30 23:25 | NUR ---
pt. having a seizure as per guard, went to see and assessed pt. pt. awake, no seizure activity noted, v/s as follows, bp- 101/56, p- 59, no sob, to keep monitor.
[2020-05-01] MEDS: SOD CHL 0.45% 1,000 ML IV SCH ×3 (04:27→17:25)
[2020-05-01 05:00] VITALS: BP 96/50
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
[2020-05-01 09:00] VITALS: BP 105/56
--- NOTE | 2020-05-01 09:50 | NUR ---
PT IN GUARD SUPERVISED SHOWER SITTING ON SHOWER CHAIR PRECAUTION
[2020-05-01] MEDS: ENOXAPARIN SOD 40 MG/0.4 ML SYRINGE SC SCH (10:00)
[2020-05-01] MEDS: GABAPENTIN 300 MG CAP PO SCH ×2 (10:08→22:02)
[2020-05-01] MEDS: buPROPion HCL 75 MG TAB PO SCH ×2 (10:09→20:30)
[2020-05-01] MEDS: levETIRAcetam 500 MG TAB PO SCH ×2 (10:09→22:03)
--- NOTE | 2020-05-01 10:17 | NUR ---
PLACED BACK ON TELE S/P SHOWER LINEN CHANGED
[2020-05-01 12:59] VITALS: BP 119/67
[2020-05-01 17:00] VITALS: BP 116/74
--- NOTE | 2020-05-01 21:40 | NUR ---
provided report to Aurora MONTENEGRO. patient is resting in bed with no signs of distress, pain, or sob.
[2020-05-01 22:00] VITALS: BP 117/72
--- NOTE | 2020-05-01 22:00 | NUR ---
assumed care, report given by rn Ector, to continue pt. care.
[2020-05-01 23:28] LABS: Urine WBC None Seen /hpf (0 - 3)
--- NOTE | 2020-05-01 23:47 | NUR ---
provided report to [facility] MONTENEGRO. patient is resting in bed with no signs of distress, pain, or sob. Addendum: 05/01/20 at 2348 by Ector Campbell RN actual time [id number]
[2020-05-01 23:49] LABS: Urine Bacteria NONE SEEN /hpf (None Seen); Urine Blood Negative /uL (Negative); Urine Specific Gravity 1.005 (1.001-1.035)
[2020-05-02] MEDS: SOD CHL 0.45% 1,000 ML IV SCH ×4 (00:04→22:03)
[2020-05-02 05:00] VITALS: BP 100/33
--- NOTE | 2020-05-02 07:59 | NUR ---
MRS[employer] D[employer]ING TE[employer]ER FROM [facility] CALLED FOR AN UPDATE ON THE PATIENT. PASSWORD WAS VERIFIED BY PRIMARY RN, UPDATE GIVEN.
[2020-05-02 09:00] VITALS: BP 100/71
[2020-05-02] MEDS: GABAPENTIN 300 MG CAP PO SCH ×2 (09:19→22:01)
[2020-05-02] MEDS: buPROPion HCL 75 MG TAB PO SCH ×2 (09:20→22:02)
[2020-05-02] MEDS: levETIRAcetam 500 MG TAB PO SCH ×2 (09:20→22:02)
[2020-05-02] MEDS: ENOXAPARIN SOD 40 MG/0.4 ML SYRINGE SC SCH (09:20)
--- NOTE | 2020-05-02 12:45 | NUR ---
Nutrition Assessment Est energy needs [id number] kcal (20-25 kcal/kg BW 77.8kg) Est protein needs 62-78g (0.8-1g/kg BW 77.8kg) Will reassess prn. Addendum: 05/02/20 at [address] Amended: Links added.
[2020-05-02 13:00] VITALS: BP 100/63
--- NOTE | 2020-05-02 15:26 | NUR ---
IV insertion IV access obtained, via clean sterile technique by inserting 22 gauge catheter at after attempt(s). IV secured properly. No trauma to site.
--- NOTE | 2020-05-02 19:00 | NUR ---
Opening Note Assumed care of patient, awake and alert. No S/S of distress/SOB or pain. Instructed on POC and to call for assist PRN, will continue to monitor for changes.
[2020-05-03] MEDS: SOD CHL 0.45% 1,000 ML IV SCH ×2 (03:00→10:27)
[2020-05-03 05:00] VITALS: BP 97/53
--- NOTE | 2020-05-03 07:58 | NUR ---
OPENING SHIFT NOTE Assumed care of patient, awake and alert. No S/S of distress/SOB or pain. Instructed on POC and to call for assist PRN, will continue to monitor for changes Q1hr and PRN. Bed is locked and in lowest position. Call light within reach.
[2020-05-03 09:00] VITALS: BP 94/57
[2020-05-03] MEDS: ENOXAPARIN SOD 40 MG/0.4 ML SYRINGE SC SCH (10:19)
[2020-05-03] MEDS: levETIRAcetam 500 MG TAB PO SCH (10:26)
[2020-05-03] MEDS: GABAPENTIN 300 MG CAP PO SCH (10:26)
[2020-05-03] MEDS: buPROPion HCL 75 MG TAB PO SCH (10:26)
[2020-05-03 12:38] VITALS: BP 108/61
== END 2020-05-03 17:20 | DRG 101 ==
LOC: EEVIPCON 17:05 → ER 17:05 → EDBD 17:05 → OVERFLOW 17:06 → WEST WING 20:04 → TELE-WESTW 04-30 01:57
PROVIDERS: ADMIT Internal Medicine; ATTEND Internal Medicine
DX: G40.909 Epilepsy, unspecified, not intractable, without status epilepticus (principal); F19.90 Other psychoactive substance use, unspecified, uncomplicated; F17.210 Nicotine dependence, cigarettes, uncomplicated; F32.9 Major depressive disorder, single episode, unspecified; F41.9 Anxiety disorder, unspecified; Z91.19 Patient's noncompliance with other medical treatment and regimen; Z20.828 Contact with and (suspected) exposure to other viral communicable diseases; Z91.14 Patient's other noncompliance with medication regimen
CPT/HCPCS: 36415; 70450; 71045; 80053; 81001; 84484; 85025; 87081; G0378; J7060

== ENCOUNTER 2020-06-21 03:35 | Inpatient (IN) | payer OTHER ==
[~2020-06-21] VITALS: Ht 172.7 cm; Wt 77.7 kg
[2020-06-21 04:21] LABS: Basophils # (auto) 0 10 ^3/uL (0-0.2); Basophils % (auto) 0.4 % (0.0-2.0); Eosinophils # (auto) 0.2 10 ^3/uL (0-0.8); Eosinophils % (auto) 2.4 % (0.0-7.0); Hematocrit 44.4 % (41.0-53.0); Hemoglobin 14.8 g/dL (13.5-17.5); Lymphocytes # (auto) 2.9 10 ^3/uL (0.4-5.4); Lymphocytes % (auto) 38.3 % (10.0-50.0); Mean Corpuscular Hemoglobin 31.7 pg (28.0-32.0); Mean Corpuscular Hgb Conc. 33.4 g/dL (32.0-36.0); Mean Corpuscular Volume 94.9 fL (80.0-100.0); Monocytes # (auto) 0.6 10 ^3/uL (0-1.3); Monocytes % (auto) 7.7 % (0.0-12.0); Neutrophils # (auto) 3.8 10 ^3/uL (1.6-8.6); Neutrophils % (auto) 51.2 % (37.0-80.0); Platelet Count (auto) 238 10^3/uL (140-450); Red Blood Cells 4.67 10^6/uL (4.5-5.90); White Blood Cell 7.5 10^3/uL (4.4-10.8)
[2020-06-21 04:42] LABS: Chloride 111 mmol/L (98-107); Potassium 3.7 mmol/L (3.5-5.1); Sodium 141 mmol/L (136-145)
[2020-06-21 04:57] LABS: Alanine Aminotransferase 20 U/L (16-61); Albumin 3.7 g/dL (3.4-5.0); Alkaline Phosphatase 79 U/L (45-117); Anion Gap 6 (5-15); Aspartate Aminotransferase 14 U/L (15-37); BUN/Creatinine Ratio 16.3; Bilirubin, Total 0.3 mg/dL (0.2-1.0); Blood Urea Nitrogen 16 mg/dL (7-18); Calcium 8.3 mg/dL (8.5-10.1); Carbon Dioxide 24 mmol/L (21-32); GFR African American 113 mL/min; GFR Non-African American 93 mL/min; Glucose 79 mg/dL (74-106); Magnesium 2.5 mg/dL (1.6-2.6); Total Protein 7.2 g/dL (6.4-8.2)
[2020-06-21] MEDS ORDERED: LORazepam 2MG/ML-1ML VIAL IV ONE ×2 (05:15→10:30)
[2020-06-21] MEDS ORDERED: levETIRAcetam 500 MG TAB PO ONE ×2 (05:15→23:04)
[2020-06-21] MEDS ORDERED: SODIUM CHLORIDE 0.9% 1,000 ML IV ONE ×2 (10:00)
[2020-06-21] MEDS ORDERED: LORazepam 2MG/ML-1ML VIAL ONE (10:15)
[2020-06-21] MEDS ORDERED: LORazepam 2MG/ML-1ML VIAL IV PRN ×2 (11:00→18:30)
[2020-06-21] MEDS ORDERED: MORPHINE SULF INJ 2 MG/ML SYRINGE 1ML IV PRN (11:00)
[2020-06-21] MEDS ORDERED: NITROGLYCERIN 0.4 MG SL TAB SL PRN (11:00)
[2020-06-21] MEDS: D5W/SOD CHL 0.45% 1,000 ML IV SCH ×2 (11:14→17:57)
--- NOTE | 2020-06-21 14:10 | NUR ---
RECEIVED REPORT FROM BHUPINDER IN ER WILL AWAIT PATIENT.
--- NOTE | 2020-06-21 15:40 | NUR ---
SPOKE WITH DR INMAN FOR ORDERS, PATIENT TO RECEIVE ATIVAN 2MG Q HOUR FOR SEIZURES IV . PATIENT ALSO TO REMAIN NPO UNTIL HE STOPS HAVING SEIZURES, PATIENT ALSO NOT TO SHOWER AT THIS TIME, UNTIL SEIZURES STOP.
[2020-06-21 16:44] VITALS: BP 111/77
[2020-06-21 16:50] VITALS: BP 111/77
--- NOTE | 2020-06-21 18:25 | NUR ---
COVID SWAB ORDERED PER PROTOCOL, AND WALKED DOWN TO LAB.
--- NOTE | 2020-06-21 19:50 | NUR ---
Opening Shift Note Assumed care of patient. Pt is awake and alert, oriented X 4. No S/S of respiratory distress. Respirations are regular and non-labored. Bed is in lowest locked position, bed rails up X 2, call light is within reach, seizures precautions for safety, guards at bedside. Instructed on POC and to call for assistance PRN. Will continue to monitor for changes Q1hr and PRN.
[2020-06-21 20:00] VITALS: BP 115/68
[2020-06-21 22:00] VITALS: BP 115/60
[2020-06-21] MEDS ORDERED: levETIRAcetam 500 MG/5ML INJ IV ONE (23:08)
[2020-06-22] MEDS: D5W/SOD CHL 0.45% 1,000 ML IV SCH ×4 (00:20→20:20)
[2020-06-22 03:19] LABS: Urine WBC None Seen /hpf (0 - 3)
[2020-06-22 03:34] LABS: Urine Bacteria NONE SEEN /hpf (None Seen); Urine Blood Negative /uL (Negative); Urine Specific Gravity 1.008 (1.001-1.035)
[2020-06-22 03:42] LABS: Alcohol, Urine < 3.0 mg/dL (0-10); Amphetamine Screen, Urine NEGATIVE (NEGATIVE); Barbiturate Scree,Urine NEGATIVE (NEGATIVE); Benzodiazephine Screen, Urine NEGATIVE (NEGATIVE); Cannabinoid Screen, Urine NEGATIVE (NEGATIVE); Cocaine Screen, Urine NEGATIVE (NEGATIVE); Opiate Scree,Urine NEGATIVE (NEGATIVE); Phencyclidine Screen, Urine NEGATIVE (NEGATIVE)
[2020-06-22 04:31] VITALS: BP 113/69
--- NOTE | 2020-06-22 07:25 | NUR ---
Opening Shift Note Assumed care of patient, awake and alert. No S/S of distress/SOB or pain. Instructed on POC and to call for assist PRN, will continue to monitor for changes Q1hr and PRN.
[2020-06-22 09:00] VITALS: BP 106/60
[2020-06-22 13:00] VITALS: BP 108/53
[2020-06-22] MEDS: GABAPENTIN 300 MG CAP PO SCH ×2 (13:45→21:38)
[2020-06-22 16:42] VITALS: BP 126/77
[2020-06-22] MEDS: buPROPion HCL 75 MG TAB PO SCH (18:36)
--- NOTE | 2020-06-22 19:32 | NUR ---
OPENING SHIFT NOTE Assumed care of patient who is A&O x4. Currently on RA with no s/s of distress. Denies pain at this time. PIV in left AC is intact and patent. Currently infusing IVF as ordered. Patient has metal restraints present at left wrist and bilateral ankles. Three armed correctional officers at bedside for supervision. POC discussed and all questions answered. Bed is in low locked position with side rails up x2. Call light is within reach and patient encouraged to call for assistance when needed. Will continue to monitor for changes PRN.
[2020-06-22] MEDS: levETIRAcetam 500 MG TAB PO SCH (21:37)
[2020-06-22] MEDS: traZODone HCL 50 MG TAB PO SCH (21:38)
--- NOTE | 2020-06-22 21:38 | NUR ---
MEDICATION REFUSAL Patient refused scheduled dose of Trazodone 150mg. States that he "wakes up with a headache" when he takes this medication. Patient educated on the need for this medication, however he continues to refuse at this time.
[2020-06-22 22:15] VITALS: BP 118/74
--- NOTE | 2020-06-22 23:34 | NUR ---
ROUNDS Patient alert and oriented. No s/s of distress noted. No c/o pain at this time. Encouraged to call for assistance when needed. Will continue to monitor for changes PRN.
[2020-06-23] MEDS: D5W/SOD CHL 0.45% 1,000 ML IV SCH ×4 (01:06→21:42)
[2020-06-23 05:10] VITALS: BP 101/58
[2020-06-23] MEDS: buPROPion HCL 75 MG TAB PO SCH ×2 (06:06→18:30)
[2020-06-23] MEDS: GABAPENTIN 300 MG CAP PO SCH ×4 (06:06→21:42)
[2020-06-23 08:45] VITALS: BP 124/83
[2020-06-23] MEDS: levETIRAcetam 500 MG TAB PO SCH ×2 (11:18→21:41)
[2020-06-23] MEDS: OLANZapine 5 MG TAB PO SCH ×2 (11:18→11:19)
--- NOTE | 2020-06-23 11:18 | NUR ---
MEDICATION REFUSAL Patient refused scheduled dose of olanzapine 10 mg. States that he "wakes up with a headache" when he takes this medication. Patient educated on the need for this medication, however he continues to refuse at this time.
[2020-06-23 12:36] VITALS: BP 124/75
[2020-06-23 16:28] VITALS: BP 114/71
--- NOTE | 2020-06-23 19:35 | NUR ---
OPENING SHIFT NOTE Assumed care of patient who is A&O x4. Currently on RA with no s/s of distress. Denies pain at this time. PIV in left AC is intact and patent. Currently infusing IVF as ordered. Patient denies seizure activity today. Ambulatory at baseline without the use of assistive devices. Patient has metal restraints present at left wrist and bilateral ankles. Three armed correctional officers at bedside for supervision. POC discussed and all questions answered. Bed is in low locked position with side rails up x2. Call light is within reach and patient encouraged to call for assistance when needed. Will continue to monitor for changes PRN.
[2020-06-23] MEDS: traZODone HCL 50 MG TAB PO SCH (21:41)
[2020-06-23 21:54] VITALS: BP 126/75
[2020-06-24] MEDS: D5W/SOD CHL 0.45% 1,000 ML IV SCH ×2 (03:14→10:58)
[2020-06-24 05:00] VITALS: BP 102/55
[2020-06-24] MEDS: buPROPion HCL 75 MG TAB PO SCH (06:30)
[2020-06-24 09:00] VITALS: BP 109/73
[2020-06-24] MEDS: OLANZapine 5 MG TAB PO SCH (10:47)
--- NOTE | 2020-06-24 10:48 | NUR ---
Patient refused Olanzapine states that it makes him dizzy. Patient educated on the medication but still refuses to take.
[2020-06-24] MEDS: levETIRAcetam 500 MG TAB PO SCH (10:57)
[2020-06-24] MEDS: GABAPENTIN 300 MG CAP PO SCH (10:57)
--- NOTE | 2020-06-24 11:57 | NUR ---
Nutrition Assessment Notes Please refer to link for full assessment notes. Est Energy needs: [id number] kcals (23-25 kcals /kgBW) Est Protein needs: 62-78 gms/day (0.8-1.0 g/kgBW) Will reassess prn Addendum: 06/24/20 at [address] Amended: Links added.
[2020-06-24 13:00] VITALS: BP 116/67
--- NOTE | 2020-06-24 15:27 | NUR ---
Discharge instructions given as ordered. Encourage to follow up with the doctor at the retirement facility as instructed. All questions and concerns addressed. Patient instructed to continue taking his medications and to no stop any medications unless consulted with the doctor. Patient verbalized understanding. Medication reconciliation form completed and copy given to patient. IV removed with catheter intact.Patient discharge , patient is in the care of the guards .No distress noted at time of discharge Addendum: 06/24/20 at 1537 by DUNCAN PATEL RN RN Patient discharged at 15:15. Guards and patient awaiting for transportation. Patient no longer in my care , patient is in the care of the guards.
== END 2020-06-24 17:02 | DRG 101 ==
LOC: EEVIPCON 03:35 → ER 03:39 → OVERFLOW 03:40 → OBSVTOIN 03:40 → CENTRAL 14:49
PROVIDERS: ADMIT Internal Medicine; ATTEND Internal Medicine
DX: G40.802 Other epilepsy, not intractable, without status epilepticus (principal); R00.1 Bradycardia, unspecified; Z20.828 Contact with and (suspected) exposure to other viral communicable diseases; F32.9 Major depressive disorder, single episode, unspecified; F41.9 Anxiety disorder, unspecified; G62.9 Polyneuropathy, unspecified; Z76.5 Malingerer [conscious simulation]; Z91.19 Patient's noncompliance with other medical treatment and regimen; Z79.899 Other long term (current) drug therapy; Z87.891 Personal history of nicotine dependence
CPT/HCPCS: 36415; 70450; 80053; 80307; 81001; 83735; 84484; 85025; 93005; G0378; J7060